=== PATIENT | male | born 1935 | race African-American/Black ===

== ENCOUNTER 2016-09-21 11:07 | Emergency (ER) | payer MEDICARE ==
[~2016-09-21] VITALS: Ht 165.1 cm; Wt 68.0 kg
[~2016-09-21 11:07] MED LIST: GUAI600T38 PO; LEVO250T25 PO
--- NOTE | 2016-09-21 12:04 | PHYS DOC ---
Past Medical History Past Medical History: No Pertinent History Past Surgical History: Appendectomy Alcohol Use: None Drug Use: None Adult General Chief Complaint Chief Complaint: UPPER EXTREMITY PAIN HPI HPI Patient is a 81 year old male who presents with complaint of sudden onset numbness along the left upper extremity. Patient states that he was attending jainism at time of onset of symptoms. Patient states he started feeling numbness in his left hand and states that it progressed up to his left shoulder. Patient denies any motor weakness associated. Patient states that he has loss of sensation in all 5 digits of the hand and that the numbness perceived along the lateral portion of the left upper extremity. Patient denies any previous history of similar symptoms. Patient denies any associated pain. Patient does have history of degenerative spinal disease of the low back. Patient denies any known history of degenerative disease of his neck. Patient has not experienced any difficulty with speech, swallowing, loss of vision, or loss of balance associated with his symptoms. Patient has not taken any medications to help with symptoms. Review of Systems Review of Systems Constitutional: Denies fever or chills [] Eyes: Denies change in visual acuity, redness, or eye pain [] HENT: Denies nasal congestion or sore throat [] Respiratory: Denies cough or shortness of breath [] Cardiovascular: Denies chest pain or edema [] GI: Denies abdominal pain, nausea, vomiting, bloody stools or diarrhea [] : Denies dysuria or hematuria [] Musculoskeletal: Denies back pain or joint pain [] Integument: Denies rash or skin lesions [] Neurologic: Numbness in left upper extremity, denies headache or focal weakness [] Allergies Allergies Allergies Coded Allergies Type Severity Reaction Last Updated Verified amoxicillin Allergy Intermediate rash 03/19/16 Yes erythromycin base Allergy Intermediate 03/19/16 Yes Physical Exam Physical Exam Constitutional: Alert, afebrile, no acute distress. [] HENT: Normocephalic, atraumatic, bilateral external ears normal, oropharynx moist, no oral exudates, nose normal. [] Eyes: PERRLA, EOMI, conjunctiva normal, no discharge. [] Neck: Normal range of motion, no tenderness, supple, no stridor. [] Cardiovascular:Heart rate regular rhythm, no murmur [] Lungs & Thorax: Bilateral breath sounds clear to auscultation [] Abdomen: Bowel sounds normal, soft, no tenderness, no masses, no pulsatile masses. [] Skin: Warm, dry, no erythema, no rash. [] Back: No tenderness, no CVA tenderness. [] Extremities: No tenderness, no cyanosis, no clubbing, ROM intact, no edema. [] Neurologic: Alert and oriented X 3, cranial nerves II through XII grossly intact , normal motor function, decreased sensation to light touch in all 5 digits of left hand, deep pressure sensation intact, negative pronator drift. [] Current Patient Data Vital Signs Vital Signs Date Time Temp Pulse Resp B/P (MAP) Pulse Ox O2 Delivery O2 Flow Rate FiO2 09/21/16 12:30 149/72 (97) 09/21/16 12:00 74 25 09/21/16 11:30 99 Room Air 09/21/16 11:19 98.0 98.0 Lab Values Laboratory Tests Test 09/21/16 11:40 White Blood Count 6.6 x10^3/uL (4.0-11.0) Red Blood Count 4.31 x10^6/uL (4.30-5.70) Hemoglobin 13.2 g/dL (13.0-17.5) Hematocrit 38.9 % (39.0-53.0) L Mean Corpuscular Volume 90 fL (79-100) Mean Corpuscular Hemoglobin 31 pg (25-35) Mean Corpuscular Hemoglobin Concent 34 g/dL (31-37) Red Cell Distribution Width 14.0 % (11.5-14.5) Platelet Count 191 x10^3/uL (140-400) Neutrophils (%) (Auto) 50 % (31-73) Lymphocytes (%) (Auto) 33 % (24-48) Monocytes (%) (Auto) 11 % (0-9) H Eosinophils (%) (Auto) 4 % (0-3) H Basophils (%) (Auto) 2 % (0-3) Neutrophils # (Auto) 3.3 x10^3uL (1.8-7.7) Lymphocytes # (Auto) 2.2 x10^3/uL (1.0-4.8) Monocytes # (Auto) 0.8 x10^3/uL (0.0-1.1) Eosinophils # (Auto) 0.3 x10^3/uL (0.0-0.7) Basophils # (Auto) 0.1 x10^3/uL (0.0-0.2) Sodium Level 142 mmol/L (136-145) Potassium Level 4.1 mmol/L (3.5-5.1) Chloride Level 106 mmol/L (98-107) Carbon Dioxide Level 31 mmol/L (21-32) Anion Gap 5 (6-14) L Blood Urea Nitrogen 16 mg/dL (8-26) Creatinine 1.1 mg/dL (0.7-1.3) Estimated GFR (Cockcroft-Gault) 77.7 Glucose Level 96 mg/dL (70-99) Calcium Level 9.1 mg/dL (8.5-10.1) Magnesium Level 1.9 mg/dL (1.8-2.4) Total Bilirubin 0.8 mg/dL (0.2-1.0) Direct Bilirubin 0.2 mg/dL (0.0-0.2) Aspartate Amino Transferase (AST) 26 U/L (15-37) Alanine Aminotransferase (ALT) 25 U/L (16-63) Alkaline Phosphatase 86 U/L (46-116) Total Protein 8.0 g/dL (6.4-8.2) Albumin 3.6 g/dL (3.4-5.0) Laboratory Tests 09/21/16 11:40 Laboratory Tests 09/21/16 11:40 EKG EKG Interpreted by me: Heart rate 67, sinus rhythm, normal intervals, normal axis, no acute ST/T-wave abnormalities present [] Radiology/Procedures Radiology/Procedures [facility] [address], [place] [id number] IMAGING REPORT Signed PATIENT: JOHANNY LEROY ACCOUNT: [id number] : 1935 LOCATION: ER AGE: 81 SEX: M EXAM STATUS: REG ER ORD. PHYSICIAN: YANA MONTERO MD REASON: left upper extremity numbness, history of degenerative spine disease PROCEDURE: CERVICAL SPINE 2-3V Examination: 3 views of the cervical spine History: History of left upper recommended numbness, history of degenerative changes. Comparison: None available Findings: The alignment of the vertebral bodies grossly appears unremarkable. There is moderate intervertebral disc height loss identified throughout the cervical spine most at C5-C6, C6-C7 vertebral levels. Moderate size anterior osteophyte formation identified at C4, C5, C6 vertebral levels. The facets appear to be well aligned. No evidence of prevertebral soft tissue swelling identified. The lateral masses of C1 are aligned with C2 vertebra. The C2 dens appears intact. Impression: Moderate multilevel degenerative changes cervical spine. DICTATED and SIGNED BY: JL FAUSTIN MD DATE: 09/21/16 123 CC: YANA MONTERO MD; JYOTI BENITEZ MD ~ [] Course & Med Decision Making Course & Med Decision Making Pertinent Labs and Imaging studies reviewed. (See chart for details) The patient displays no motor weakness on exam. The patient's symptoms are likely consistent with acute radiculopathy. Patient's cervical spine x-ray shows moderate degenerative changes in the neck likely leading to radicular symptoms. The patient will be placed on Medrol Dosepak and advised follow-up in 4-5 days if symptoms are not improving with the patient's primary doctor. Advised return to emergency department for any worsening symptoms. Patient voiced understanding and in agreement with treatment plan. Dragon Disclaimer Dragon Disclaimer This electronic medical record was generated, in whole or in part, using a voice recognition dictation system. Departure Departure Impression: Primary Impression: Left upper extremity numbness Additional Impression: Degenerative arthritis of cervical spine Disposition: 01 HOME, SELF-CARE Condition: IMPROVED Referrals: JYOTI BENITEZ MD (PCP) Patient Instructions: Cervical Radiculopathy Additional Instructions: Follow-up to primary doctor in 4-5 days if symptoms are not improving. Return to emergency department for any worsening symptoms. 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
[2016-09-21 12:30] VITALS: BP 149/72
[2016-09-21 12:38] LABS: BASO # 0.1 x10^3/uL (0.0-0.2); BASO % 2 % (0-3); EOS % 4 % (0-3); HEMATOCRIT 38.9 % (39.0-53.0); HEMOGLOBIN 13.2 g/dL (13.0-17.5); LYMPH # 2.2 x10^3/uL (1.0-4.8); LYMPH % 33 % (24-48); MEAN CORPUSCULAR HEMOGLOBIN 31 pg (25-35); MEAN CORPUSCULAR HGB CONC 34 g/dL (31-37); MEAN CORPUSCULAR VOLUME 90 fL (79-100); MONO % 11 % (0-9); NEUT % 50 % (31-73); PLATELET COUNT 191 x10^3/uL (140-400); RED BLOOD COUNT 4.31 x10^6/uL (4.30-5.70); WHITE BLOOD COUNT 6.6 x10^3/uL (4.0-11.0)
[2016-09-21 12:43] LABS: CALCIUM 9.1 mg/dL (8.5-10.1); CREATININE 1.1 mg/dL (0.7-1.3); GFR 77.7; POTASSIUM 4.1 mmol/L (3.5-5.1)
--- NOTE | 2016-09-21 12:43 | RAD ---
Examination: 3 views of the cervical spine History: History of left upper recommended numbness, history of degenerative changes. Comparison: None available Findings: The alignment of the vertebral bodies grossly appears unremarkable. There is moderate intervertebral disc height loss identified throughout the cervical spine most at C5-C6, C6-C7 vertebral levels. Moderate size anterior osteophyte formation identified at C4, C5, C6 vertebral levels. The facets appear to be well aligned. No evidence of prevertebral soft tissue swelling identified. The lateral masses of C1 are aligned with C2 vertebra. The C2 dens appears intact. Impression: Moderate multilevel degenerative changes cervical spine.
[2016-09-21 12:49] LABS: ALBUMIN 3.6 g/dL (3.4-5.0); DIRECT BILIRUBIN 0.2 mg/dL (0.0-0.2); MAGNESIUM 1.9 mg/dL (1.8-2.4); TOTAL BILIRUBIN 0.8 mg/dL (0.2-1.0)
--- NOTE | 2016-09-21 12:58 | EKG ---
[facility] [address] [place] [address] Test Date: 2016-09-21 Test Time: 11:19:27 Pat Name: JOHANNY LEROY Department: Room: Gender: Male Expander: : 1935 Requested By: YANA MONTERO Order Number: [id number] Reading MD: Gordon Mosley Measurements Intervals [place] Rate: 67 P: 62 [place]: 150 QRS: 13 QRSD: 76 T: 50 QT: 382 QTc: 406 Interpretive Statements SINUS RHYTHM Electronically Signed On 09-23-2016 9:56:13 CDT by Gordon Mosley
[2016-09-21] MEDS ORDERED: METH4TAB2 PO (13:16)
== END 2016-09-21 13:25 | disposition home or self-care (01) ==
LOC: ER 12:04
DX: R20.0 Anesthesia of skin (principal); M47.892 Other spondylosis, cervical region; Z88.1 Allergy status to other antibiotic agents
CPT/HCPCS: 36415; 72040; 80048; 80076; 83735; 85027; 93005; 99285-25